=== PATIENT | male | born 1970 | race Caucasian/White ===

== ENCOUNTER → 2016-08-08 | Outpatient (CLI) | payer OTHER ==
--- NOTE | 2016-08-08 13:02 | MR ---
EXAMINATION TYPE: MR shoulder RT wo con DATE OF EXAM: 08/08/2016 COMPARISON: Right shoulder x-ray November 28, 2013 HISTORY: R shoulder pain per order. Pain for 3 years per patient. TECHNIQUE: Multiplanar, multisequence imaging of the right shoulder is performed without contrast. FINDINGS: Rotator Cuff: Supraspinatus and infraspinatus tendons are intact and the femoral head attachment. No suspicious full-thickness or partial-thickness tear is identified. Rotator cuff muscle bulk is preser nevaeh. Subscapularis tendon is intact. There is increased signal noted distally over the humeral head. Acromioclavicular Joint: There is joint space loss and capsular hypertrophy with spurring. Inferior f at plane is maintained. There is slight type II downsloping acromion. Glenohumeral Joint: There is small to moderate-sized glenohumeral joint effusion. No significant spur ring is seen. Mild joint space loss is noted. Labrum: The superior labrum appears grossly intact given limitation of non-arthrogram study. There is however tear of the posterior inferior labrum suspected with irregular signal along the inferior gle noid extending superiorly. Abnormal adjacent fluid inferiorly is also present. Biceps Tendon: The long head of biceps is in normal location within bicipital groove. Bone marrow signal: Minimal subchondral cystic change superolateral humeral head. There is cystic adry nge involving the central posterior osseous glenoid seen best on axial images 10 and 11 favor subchon dral cystic change. Other: No additional significant abnormality is appreciated. IMPRESSION: 1. Probable tear posterior labrum as detailed above. 2. AC joint degenerative arthropathy as detailed above. 3. Moderate subscapularis tendinosis/partial tear.
== END | disposition home or self-care (01) ==
LOC: RADMRIMAIN 11:07
PROVIDERS: ATTEND Nurse Practitioner Acute Care
DX: M19.011 Primary osteoarthritis, right shoulder (principal)

== ENCOUNTER 2019-02-09 13:15 | Emergency (ER) | payer OTHER ==
[2019-02-09 14:10] VITALS: BP 151/94; PULSE 79; RESP 18; TEMP 98.2
[2019-02-09] MEDS ORDERED: DIPH,PERTUS(ACELL)TETVAC-LF 0.5 ML VIAL IM ONE (15:06)
--- NOTE | 2019-02-09 15:36 | ED ---
General Adult HPI - General Chief complaint: Wound/Laceration Stated complaint: Puncture wound left thumb Time Seen by Provider: 02/09/19 15:01 Source: patient, RN notes reviewed, old records reviewed Mode of arrival: ambulatory Limitations: no limitations - History of Present Illness Initial comments: 48-year-old male patient presents to ED for chief complaint of left thumb laceration. Patient reports that he was opening a narcotics testing Which is a glass bottle when it broke and caused a puncture to the pad of the left thumb. Patient does not know date last tetanus. Patient denies any other complaints at this time. Full active range of motion of digit. Systemic: Pt denies fatigue, fever/chills, rash. Pt denies weakness, night sweats, weight loss. Neuro: Pt denies headache, visual disturbances, syncope or pre-syncope. HEENT: Pt denies ocular discharge or irritation, otalgia, rhinorrhea, pharyngitis or notable lymphadenopathy. Cardiopulmonary: Pt denies chest pain, SOB, heart palpitations, dyspnea on exertion. Abdominal/GI: Pt denies abdominal pain, n/v/d. : Pt denies dysuria, burning w/ urination, frequency/urgency. Denies new onset urinary or bowel incontinence. MSK: Pt denies myalgia, loss of strength or function in extremities. Neuro: Pt denies new onset weakness, paresthesias. - Related Data Home Medications Medication Instructions Recorded Confirmed Atorvastatin [Lipitor] 20 mg PO DAILY 06/14/17 06/14/17 Bisoprolol Fumarate [Zebeta] 10 mg PO DAILY 06/14/17 06/14/17 Cholecalciferol (Vitamin D3) 2,000 units PO DAILY 06/14/17 06/14/17 [Vitamin D3] Hydrochlorothiazide [Hydrodiuril] 12.5 mg PO DAILY 06/14/17 06/14/17 Naproxen 500 mg PO DAILY 06/14/17 06/14/17 metFORMIN HCL [Glucophage] 500 mg PO BID 06/14/17 06/14/17 Allergies Allergy/AdvReac Type Severity Reaction Status Date / Time amoxicillin Allergy Rash/Hives Verified 02/09/19 14:07 Review of Systems ROS Statement: Those systems with pertinent positive or pertinent negative responses have been documented in the HPI. ROS Other: All systems not noted in ROS Statement are negative. Past Medical History Past Medical History: Diabetes Mellitus, GERD/Reflux, Hyperlipidemia, Hypertension Additional Past Medical History / Comment(s): POSITIVE OCCULT BLOOD, Chronic fatigue, Lyme disease, vitamin D deficiency, right shoulder separation History of Any Multi-Drug Resistant Organisms: None Reported Past Surgical History: Orthopedic Surgery Additional Past Surgical History / Comment(s): RT ANKLE RECONSTRUCTION, colonoscopy, hemorroids Past Anesthesia/Blood Transfusion Reactions: No Reported Reaction Past Psychological History: No Psychological Hx Reported Smoking Status: Former smoker Past Alcohol Use History: None Reported Past Drug Use History: None Reported General Exam - General Exam Comments Initial Comments: Constitutional: NAD, AOX3, Pt has pleasant affect. HEENT: NC/AT, trachea midline, neck supple, no lymphadenopathy. Posterior pharynx non erythematous, without exudates. External ears appear normal, without discharge. Mucous membranes moist. Eyes PERRLA, EOM intact. There is no scleral icterus. No pallor noted. Cardiopulmonary: RRR, no murmurs, rubs or gallops, no JVD noted. Lungs CTAB in anterior and posterior rangel. No peripheral edema. Abdominal exam: Abdomen soft and non-distended. Abdomen non-tender to palpation in all 4 quadrants. Bowel sounds active in LLQ. No hepatosplenomegaly. No ecchymosis Neuro: CN II-XII grossly intact. No nuchal rigidity. No raccon eyes, no baker sign, no hemotympanum. No cervical spinal tenderness. MSK: Small puncture injury to pad of left thumb. Cleaned in emergency depart ment. No posterior calf tenderness bilaterally, homans sign negative bilaterally. Posterior tibialis and radial pulse +2 bilaterally. Sensation intact in upper and lower extremities. Full active ROM in upper and lower extremities, 5/5 stregnth. Limitations: no limitations Course Vital Signs 02/09/19 14:08 Temperature 98.2 F Pulse Rate 79 Respiratory 18 Rate Blood Pressure 151/94 O2 Sat by Pulse 97 Oximetry Medical Decision Making - Medical Decision Making 48-year-old male patient presents to ED for chief complaint of left thumb laceration. Patient reports that he was opening a narcotics testing Which is a glass bottle when it broke and caused a puncture to the pad of the left thumb. Patient does not know date last tetanus. Patient denies any other complaints at this time. Full active range of motion of digit. Patient vital signs stable, afebrile. Physical exam displayed small puncture injury. No open laceration. Cleaned in emergency department. Patient tetanus updated. X-ray did not display any sign of foreign body. Will follow with primary care provider and return to ER if condition worsens. Case discussed with Dr. Stephens. Disposition Clinical Impression: Puncture wound Disposition: HOME SELF-CARE Condition: Stable Instructions (If sedation given, give patient instructions): Puncture Wound (ED) Additional Instructions: Patient to adhere to previously discussed treatment plan and will take medication(s) as directed. Patient to follow up with PCP in 1-2 days. Patient to return to ED if symptoms do not improve. Please monitor for signs and symptoms of infection including: redness, warmth, drainage, discharge. Please return to ED if these signs or symptoms occur, new signs or symptoms develop or if condition worsens in anyway. Is patient prescribed a controlled substance at d/c from ED?: No Referrals: Valentin Morrow III, MD [Primary Care Provider] - 1-2 days
--- NOTE | 2019-02-09 17:12 | XR ---
EXAMINATION TYPE: XR hand complete LT DATE OF EXAM: 02/09/2019 COMPARISON: NONE HISTORY: Pain TECHNIQUE: Three views are submitted. FINDINGS: The osseous structures are intact. The joint spaces are preserved and there is no acute fracture or dislocation. There is a linear lucency along the distal margin of the distal phalanx first digit. IMPRESSION: 1. No radiopaque foreign body identified 2. There is a linear lucency involving the distal margin distal phalanx first digit which may have co rticated margins and be chronic correlate with point tenderness to exclude hairline fracture.
== END 2019-02-09 16:02 | disposition home or self-care (01) ==
LOC: EC 13:15
DX: S61.032A Puncture wound without foreign body of left thumb without damage to nail, initial encounter (principal); E11.9 Type 2 diabetes mellitus without complications; E78.5 Hyperlipidemia, unspecified; I10 Essential (primary) hypertension; E55.9 Vitamin D deficiency, unspecified; Z87.891 Personal history of nicotine dependence; Z79.1 Long term (current) use of non-steroidal anti-inflammatories (NSAID); Z79.84 Long term (current) use of oral hypoglycemic drugs; Z79.899 Other long term (current) drug therapy; Z88.0 Allergy status to penicillin; Z23 Encounter for immunization; W25.XXXA Contact with sharp glass, initial encounter; Y93.89 Activity, other specified; Y92.009 Unspecified place in unspecified non-institutional (private) residence as the place of occurrence of the external cause; Y99.0 Civilian activity done for income or pay
CPT/HCPCS: 90471; 90715; 99283